=== PATIENT | male | born 1940 | race Caucasian/White ===

== ENCOUNTER → 2017-02-27 | Outpatient (CLI) | payer MEDICARE, MEDICAID ==
[~2017-02-27] MED LIST: ACET50TA PO; ASPIRIN PO; CIPR500T89 PO; CITRSOL8 PO; COLA100C2 OR; COLA100C3 PO; DOCU100C PO; LEVA500T PO; METAMUCIL PO; METO100T PO; METOPOLOL PO; MILKSUS PO; PERC5TAB8 OR; SENO8.6T2 PO; TUMS500C PO; TYLE650T25 PO; VITAMIN D PO; [UNRECOGNIZED DRUG - CODE] INH; albuterol inhaler INH; metoprolol OR; omega 3 OR; simethicone OR
--- NOTE | 2017-02-27 23:14 | REP ---
RIGHT SHOULDER, THREE VIEWS: HISTORY: Shoulder pain. There is no acute fracture or dislocation. There is narrowing of the joint spaces with associated osteophyte formation. There is deformity of the right 6th rib. IMPRESSION: Degenerative change as described above.
--- NOTE | 2017-02-27 23:17 | REP ---
RIGHT RIBS, WITH PA CHEST: Four views of the right ribs with frontal view of the chest. HISTORY: Pain after trauma. COMPARISON: No prior rib series for comparison. Prior frontal view of the chest 06/03/2014, which is the latest prior was reviewed. There is a fracture of the posterior aspect of the right 6th rib. The bones are demineralized. The accompanying frontal view of the chest shows chronic changes, status quo. IMPRESSION: Age undetermined fracture involving the posterior aspect of the right 6th rib. Acute fracture on chronic change cannot be ruled out. Signed by Bryant Charles DO 02/28/2017 11:20 A
== END ==
LOC: M CLY 15:20
PROVIDERS: ATTEND Physician Assistant
DX: R07.81 Pleurodynia (principal); M19.011 Primary osteoarthritis, right shoulder
CPT/HCPCS: 71101; 73030; G0463

== ENCOUNTER → 2017-03-11 | Outpatient (REF) | payer MEDICARE, MEDICAID ==
[2017-03-11 18:18] LABS: MEAN CORPUSCULAR HEMOGLOBIN 28.9 pg (27.0-33.0); MEAN CORPUSCULAR HGB CONC 31.4 g/dl (32.0-36.5); MEAN CORPUSCULAR VOLUME 92.1 fl (80.0-96.0); RED CELL DISTRIBUTION WIDTH 14.1 % (11.5-14.5); WHITE BLOOD COUNT 9.2 K/mm3 (4.0-10.0)
[2017-03-11 18:57] LABS: ANION GAP 6 MEQ/L (8-16); BLOOD UREA NITROGEN 21 MG/DL (7-18); CALCIUM LEVEL 8.6 MG/DL (8.8-10.2); CARBON DIOXIDE LEVEL 30 MEQ/L (21-32); CHLORIDE LEVEL 106 MEQ/L (98-107); CREATININE FOR GFR 1.03 MG/DL (0.70-1.30); GLOMERULAR FILTRATION RATE > 60.0 (>42); GLUCOSE, FASTING 81 MG/DL (83-110); POTASSIUM SERUM 4.1 MEQ/L (3.5-5.1); SODIUM LEVEL 142 MEQ/L (136-145)
== END ==
LOC: M SFHCCAPE 08:33
PROVIDERS: ATTEND Urology
DX: C67.9 Malignant neoplasm of bladder, unspecified (principal)

== ENCOUNTER → 2018-03-11 | Outpatient (REF) | payer MEDICARE, MEDICAID ==
[2018-03-11 16:38] LABS: ANION GAP 6 MEQ/L (8-16); BLOOD UREA NITROGEN 12 MG/DL (7-18); CALCIUM LEVEL 8.5 MG/DL (8.8-10.2); CARBON DIOXIDE LEVEL 30 MEQ/L (21-32); CHLORIDE LEVEL 108 MEQ/L (98-107); CREATININE FOR GFR 0.99 MG/DL (0.70-1.30); GLOMERULAR FILTRATION RATE > 60.0 (>42); GLUCOSE, FASTING 80 MG/DL (70-100); POTASSIUM SERUM 4.6 MEQ/L (3.5-5.1); SODIUM LEVEL 144 MEQ/L (136-145)
== END ==
LOC: M SFHCCAPE 10:02
DX: C67.9 Malignant neoplasm of bladder, unspecified (principal)
CPT/HCPCS: 80048